=== PATIENT | male | born 1950 | race Caucasian/White ===

== ENCOUNTER 2017-06-03 02:56 | Day surgery (SDC) | payer MEDICARE, MEDICAID ==
[2017-06-01 10:29] VITALS: BP 128/70
[2017-06-01 11:13] LABS: BASOPHIL % 0.4 % (0.0-0.2); EOSINOPHIL # 0.4 10^3/uL (0.0-0.2); EOSINOPHIL % 5.3 % (0.0-5.0); LYMPHOCYTES # 1.9 10^3/uL (1.0-4.8); LYMPHOCYTES % 27.7 % (24.0-44.0); MEAN CELL HGB 30.6 pg (26-34); MEAN CELL HGB CONCENTRATION 33.6 g/dL (33-37); MEAN CORP VOLUME 91.2 fL (78-100); MEAN PLATELET VOLUME 9.7 fL (7.8-11.0); MONOCYTES # 0.7 10^3/uL (0.3-0.8); MONOCYTES % 10.1 % (5.0-12.0); NEUTROPHIL # 3.8 10^3/uL (1.8-7.7); NEUTROPHILS % 56.4 % (41.0-85.0); RED CELL DISTRIBUTION WIDTH 12.5 % (11.5-14.5); WHITE BLOOD CELL 6.8 10^3/uL (4.5-11.0)
[2017-06-01 11:34] LABS: CALCIUM 9.9 mg/dL (8.4-10.5); CARBON DIOXIDE 22.7 mmol/L (20.0-32)
--- NOTE | 2017-06-01 16:07 | PCM.EKG ---
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
[2017-06-03] VITALS (12 sets, daily range): BP systolic 109–145; BP diastolic 50–76
[~2017-06-03] VITALS: Ht 182.9 cm; Wt 121.1 kg
[~2017-06-03 02:56] MED LIST: AMLO1CAP15 PO; ASPI-667 PO; CINN500C2 PO; CIPR500T86 PO; DULA1.5P SQ; FAMO20TA5 PO; FAMO40TA4 PO; GARL10002 PO; INSU100C5 SQ; INSU100V8 SQ; LEVO100T5 PO; LEVO500T51 PO; LINA1TAB5 PO; MULT-709 PO; OLME1TAB23 PO; OLME40TA12 PO; OMEG500C PO; RANI150T4 PO; RANI150T8 PO; SOLI10TA2 PO; TAMS0.4C2 PO; TRAM50TA PO; VIT1TABL32 PO
[2017-06-03] MEDS ORDERED: NS 1000ML 1,000 ML ONE ×2 (05:26→10:42)
[2017-06-03] MEDS ORDERED: LASIX ONE (05:26)
[2017-06-03] MEDS ORDERED: SUBLIMAZE ONE (06:33)
[2017-06-03] MEDS ORDERED: DIPRIVAN IV ONE (06:33)
[2017-06-03] MEDS ORDERED: TORADOL ONE (06:33)
[2017-06-03] MEDS ORDERED: ZOFRAN ONE (06:33)
[2017-06-03] MEDS ORDERED: DECADRON ONE (06:33)
[2017-06-03] MEDS ORDERED: XYLOCAINE ONE (06:33)
[2017-06-03] MEDS: NS 1000ML 1,000 ML IV SCH ×4 (07:04→10:34)
[2017-06-03] MEDS ORDERED: QUELICIN ONE (08:34)
[2017-06-03] MEDS ORDERED: ZEMURON IV ONE (08:35)
[2017-06-03] MEDS ORDERED: LASIX IV ONE (09:00)
[2017-06-03] MEDS ORDERED: ACET-685 PO (10:12)
[2017-06-03] MEDS ORDERED: LASIX IV SCH (10:30)
[2017-06-03] MEDS ORDERED: NORCO 7.5MG PO PRN (10:30)
[2017-06-03] MEDS ORDERED: LACTATED RINGERS 1,000 ML IV SCH (10:30)
[2017-06-03] MEDS ORDERED: NEOSTIGMINE ONE (10:42)
[2017-06-03] MEDS ORDERED: MORPHINE SULFATE IV PRN (11:00)
[2017-06-03] MEDS ORDERED: TRANDATE IV PRN (11:00)
[2017-06-03] MEDS ORDERED: DILAUDID IV PRN (11:00)
[2017-06-03] MEDS ORDERED: SUBLIMAZE IV PRN (11:00)
--- NOTE | 2017-06-04 19:04 | OPH ---
DATE OF SURGERY: 06/03/2017 PREOPERATIVE DIAGNOSIS: Right renal calculus. FINAL DIAGNOSIS: Right renal calculus. PROCEDURES: Right ESWL. DESCRIPTION OF PROCEDURE: The patient was brought to the lithotripsy room, was put in supine position on the lithotripsy table. A right preop renal ultrasound was initially performed which revealed a stone in the mid pole of the right kidney measuring 8 mm in diameter. There was no evidence of hydronephrosis, no cysts or masses noted. After the patient was given general anesthesia and after localization of the stone with the use of an ultrasound and the C-arm fluoroscopy, a right ESWL was then performed using a Dornier Compact Delta II Lithotripter. A total of 2500 shockwaves were delivered to the stones in the right kidney under ultrasound guidance. After fragmentation of the stone as noted in the ultrasound and fluoroscopy, the procedure was terminated. The patient was then awakened, was transferred to the recovery room in stable condition. Myron Mcdermott MD DR: SALENA/josephine JOB# [id number]
== END 2017-06-03 11:35 | disposition home or self-care (01) | DRG 693 ==
LOC: SDC 02:56
PROVIDERS: ATTEND Urology
DX: N20.0 Calculus of kidney (principal); I10 Essential (primary) hypertension; E66.9 Obesity, unspecified; I63.9 Cerebral infarction, unspecified; E03.9 Hypothyroidism, unspecified; E11.9 Type 2 diabetes mellitus without complications; K21.9 Gastro-esophageal reflux disease without esophagitis; Z79.899 Other long term (current) drug therapy; Z98.890 Other specified postprocedural states; Z88.8 Allergy status to other drugs, medicaments and biological substances; Z79.4 Long term (current) use of insulin
CPT/HCPCS: 36415; 50590; 80048; 82948 ×2; 85025; 85610; 93005; J0330; J1100; J1885; J2405; J3010; J3490 ×3; J7030 ×2; J1940; J2710

== ENCOUNTER 2017-06-17 01:40 | Day surgery (SDC) | payer MEDICARE, MEDICAID ==
[2017-06-17] VITALS (10 sets, daily range): BP systolic 130–167; BP diastolic 56–80
[~2017-06-17] VITALS: Ht 182.9 cm; Wt 121.1 kg
[~2017-06-17 01:40] MED LIST changes: +ACET-685 PO
[2017-06-17] MEDS ORDERED: NS 1000ML 1,000 ML ONE (05:11)
[2017-06-17] MEDS ORDERED: LASIX ONE (05:11)
[2017-06-17] MEDS ORDERED: NS 1000ML 1,000 ML IV SCH (06:00)
[2017-06-17] MEDS ORDERED: DECADRON ONE (06:49)
[2017-06-17] MEDS ORDERED: LIDOCAINE 2% VIAL ONE (06:49)
[2017-06-17] MEDS ORDERED: ZEMURON IV ONE (06:49)
[2017-06-17] MEDS ORDERED: NEOSTIGMINE ONE (06:50)
[2017-06-17] MEDS ORDERED: ZOFRAN ONE (06:50)
[2017-06-17] MEDS ORDERED: SUBLIMAZE ONE (06:50)
[2017-06-17] MEDS ORDERED: QUELICIN ONE (06:50)
[2017-06-17] MEDS ORDERED: DIPRIVAN IV ONE (06:50)
[2017-06-17] MEDS ORDERED: LASIX IV ONE (08:00)
[2017-06-17] MEDS ORDERED: LACTATED RINGERS 1,000 ML IV SCH (09:30)
[2017-06-17] MEDS ORDERED: SUBLIMAZE IV PRN (09:30)
[2017-06-17] MEDS ORDERED: NORCO 7.5MG PO PRN (09:30)
[2017-06-17] MEDS ORDERED: LASIX IV SCH (09:30)
[2017-06-17] MEDS ORDERED: DILAUDID IV PRN (09:30)
[2017-06-17] MEDS ORDERED: PHENERGAN IV PRN (09:30)
--- NOTE | 2017-06-17 09:41 | PCM.EKG ---
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
--- NOTE | 2017-06-17 09:46 | OPH ---
DATE OF SURGERY: 06/17/2017 PREOPERATIVE DIAGNOSIS: Left renal calculi. FINAL DIAGNOSIS: Left renal calculi. PROCEDURE: Left ESWL. DESCRIPTION OF PROCEDURE: The patient was brought to the lithotripsy room, was put in supine position on the lithotripsy table. A left preop renal ultrasound was initially performed which showed the stone in the lower pole of the left kidney measuring 8.4 mm in diameter and another one in the left renal pelvis measuring 1.1 cm in diameter. There was no evidence of obstruction or hydronephrosis noted. After the patient was given endotracheal general anesthesia and after localization of the stone with the use of the fluoroscopy and ultrasound, a left ESWL was then performed using Dornier Compact Delta II Lithotripter. A total of 2500 shockwaves were delivered to the stones in different locations in the left kidney under ultrasound guidance. After fragmentation of the stone as noted in the ultrasound the procedure was terminated. The patient was awakened, was transferred to the recovery room in stable condition. Myron Mcdermott MD DR: SALENA/josephine JOB# [id number]
== END 2017-06-17 10:30 | disposition home or self-care (01) | DRG 693 ==
LOC: SURG 01:40 → SDC 10:30
PROVIDERS: ATTEND Urology
DX: N20.0 Calculus of kidney (principal); E11.9 Type 2 diabetes mellitus without complications; K21.9 Gastro-esophageal reflux disease without esophagitis; E66.9 Obesity, unspecified; I10 Essential (primary) hypertension; I63.9 Cerebral infarction, unspecified; Z98.890 Other specified postprocedural states; Z88.1 Allergy status to other antibiotic agents; Z88.8 Allergy status to other drugs, medicaments and biological substances; Z79.899 Other long term (current) drug therapy
CPT/HCPCS: 50590; 82948 ×2; 93005; J0330; J1100; J2001; J2405; J3010; J3490 ×2; J7030; J1940; J2710

== ENCOUNTER 2018-10-26 08:00 | Inpatient (IN) | payer MEDICARE, MEDICAID ==
[2018-10-24 10:31] LABS: BASOPHIL # 0.1 10^3/uL (0.0-0.1); BASOPHIL % 0.6 % (0.0-0.2); EOSINOPHIL # 0.4 10^3/uL (0.0-0.2); EOSINOPHIL % 4.1 % (0.0-5.0); HEMOGLOBIN 14.3 g/dL (13.9-16.3); LYMPHOCYTES # 2.2 10^3/uL (1.0-4.8); MEAN CELL HGB 30.1 pg (26-34); MEAN CELL HGB CONCENTRATION 34.2 g/dL (33-37); MONOCYTES # 0.9 10^3/uL (0.3-0.8); MONOCYTES % 9.6 % (5.0-12.0); NEUTROPHIL # 5.5 10^3/uL (1.8-7.7); NEUTROPHILS % 61.4 % (41.0-85.0); RED CELL DISTRIBUTION WIDTH 14.8 % (11.5-14.5)
[2018-10-24 10:40] VITALS: BP 144/73
[2018-10-24 10:44] LABS: CARBON DIOXIDE 29.2 mmol/L (20.0-32)
--- NOTE | 2018-10-24 13:48 | PCM.EKG ---
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
[~2018-10-26] VITALS: Ht 185.4 cm; Wt 112.2 kg
[2018-10-26] VITALS (9 sets, daily range): BP systolic 105–145; BP diastolic 57–80
[2018-10-26] MEDS: NS 1000ML 1,000 ML IV SCH ×3 (07:14→18:15)
[~2018-10-26 08:00] MED LIST changes: +AMINOACETIC ACID IR ONE; +DECADRON ONE; +DILAUDID ONE; +DIPRIVAN IV ONE; +INSU100I33 SQ; +LEVAQUIN 100 ML IV ONE; +LIDOCAINE 2% VIAL ONE; +LINA1TAB9 PO; +MARCAINE SPINAL AMPUL IJ ONE; +RANI150T23 PO; -RANI150T8 PO; +SODIUM CHLORIDE IR ONE; +SUBLIMAZE ONE; +ZOFRAN ONE
[2018-10-26] MEDS ORDERED: SUBLIMAZE ONE (08:30)
[2018-10-26] MEDS ORDERED: AMINOACETIC ACID IR ONE (08:31)
[2018-10-26] MEDS ORDERED: NORCO 7.5MG PO PRN ×2 (09:30)
[2018-10-26] MEDS ORDERED: ZOFRAN IV PRN (09:30)
[2018-10-26] MEDS ORDERED: DEMEROL IV PRN (09:30)
[2018-10-26] MEDS ORDERED: DILAUDID IV PRN (09:30)
[2018-10-26] MEDS ORDERED: BENADRYL IV PRN (09:30)
[2018-10-26] MEDS ORDERED: PHENERGAN IV PRN ×4 (09:30)
[2018-10-26] MEDS ORDERED: VENTOLIN IH PRN (09:30)
[2018-10-26] MEDS ORDERED: NS 100ML 100 ML IV ONE (09:35)
[2018-10-26] MEDS ORDERED: EPHEDRINE SULFATE ONE (09:35)
[2018-10-26] MEDS ORDERED: NS 1000ML 1,000 ML ONE ×2 (09:35→09:36)
--- NOTE | 2018-10-26 09:48 | OPH ---
DATE OF SURGERY: 10/26/2018 PREOPERATIVE DIAGNOSIS: Obstructive prostatic hyperplasia. FINAL DIAGNOSIS: Obstructive prostatic hyperplasia. PROCEDURES: TUR of the prostate. DESCRIPTION OF PROCEDURE: The patient was brought to the cystoscopy room and put in supine position on the cystoscopy table. A spinal anesthesia was attempted, but unsuccessful, so the patient was then put in the supine position on the cystoscopy table. The patient was given an LMA general anesthesia. After that, the patient was placed in the lithotomy position and the genitalia was then prepped and draped aseptically in the usual manner. First, the urethra was dilated with curved sounds up to 28-[place]izen [place] and then a 26-Citizen [place] resectoscope sheath was then inserted per urethra up to the bladder. With the use of Thoughtly resectoscope and with a 30-degree angle lens, the posterior urethra was visualized. There is bilateral lobe prostatic hyperplasia, which was obstructed. The bladder was also inspected. No tumor, no calculi, no ulceration seen. There was some trabeculation noted. TUR of the prostate was started at the bladder neck between 5 and 7 and this was carried proximal to the verumontanum. The lateral lobes resected next followed by the roof. After adequate dissection of the prostatic hyperplasia up to the prostatic capsule and after adequate hemostasis, all tissue tips were then evacuated from the bladder. The bladder was then irrigated. Return flow was clear. The instrument was removed and a Arellano catheter was inserted. The patient was then awakened and was transferred to the recovery room in stable condition. Myron Mcdermott MD DR: SALENA/josephine JOB# [id number]
[2018-10-26] MEDS ORDERED: WATER ONE (09:57)
--- NOTE | 2018-10-26 10:25 | NUR ---
arrival patient arrived from the or. TURP [address] way infusing and functioning properly. attached to special vitals and set to q 15 minutes. patient oriented to room and call light.
--- NOTE | 2018-10-26 11:26 | PRM.CONS ---
Consultation Reason for Consult: Reason for Consultation: Medical management of Comorbidities History of Present Illness History of Patient Comments Patient is 68 M PMH of Recurrent kidney stones, DM, HTN, Hypothyroidism who presents s/p TURP with Urology. I was consulted for medical management of comorbidities. Patient is comfortable @ bedside during my evaluation. His pain is controlled. No complications of procedures. I reviewed the labs. Patient has fontenot in place. Clear urine output in fontenot. Discussed case with Dr. Mcdermott. Patient medications reconciled. Past Medical History 1. DM 2. HTN 3. Hypothyroidism 4. Recurrent Nephrolithiasis Past Surgical History 1. Lithotripsy (multiple) 2. TURP 3. Tonsillectomy 4. L Hip Social History: Lives @ home alone. No tobacco, no drugs, no alcohol. Family History: noncontributory Review of Systems Constitutional: No: Fever, Chills Eyes: No: Conjunctivae inflammation, Eyelid inflammation ENT: No: Nose discharge, Nose congestion Respiratory: No: Cough, Shortness of breath, SOB with excertion, Wheezing Cardiovascular: No: Chest Pain, Palpitations, Edema Gastrointestinal: No: Nausea, Vomiting, Abdominal Pain Genitourinary: Hematuria; No Retention Musculoskeletal: No: neck pain, back pain Skin: No: Rash, Lesions, Jaundice, Bruising Neurological: No: Weakness, Numbness, Incoordination, Change in speech, Confusion, Seizures Allergies: Coded Allergies: carvedilol (Verified Allergy, Severe, WEAKNESS,DIZZINESS,GOOFY, 06/01/17) Uncoded Allergies: HCTZ (Allergy, Mild, 06/17/17) Scheduled Amlodipine Besylate/Benazepril (Amlodipine-Benazepril 10-40 Mg), 1 CAP PO DAILY, (Reported) Cinnamon Bark (Cinnamon), 1,000 MG PO HS, (Reported) Garlic (Garlic), 1,000 MG PO HS, (Reported) Insulin Aspart (Novolog), 16 UNIT SQ BID, (Reported) Insulin Glargine,Hum.rec.anlog (Basaglar Kwikpen U-100), 75 UNITS SQ HS, (Reported) Levothyroxine Sodium (Levothyroxine Sodium), 100 MCG PO DAILY, (Reported) Linagliptin/Metformin HCl (Jentadueto Xr 5 mg-1,000 mg Tb), 1 EACH PO DAILY24, (Reported) Multivit-Min/FA/Lycopen/Lutein (Men 50 Plus Multivitamin Tab), 1 EACH PO DAILY, (Reported) [place]-3 Fatty Acids (Fish Oil), 1,000 MG PO HS, (Reported) Ranitidine Hcl (Zantac), 1 TAB PO BID, (Reported) Solifenacin Succinate (Vesicare), 1 TAB PO DAILY, (Reported) Tamsulosin Hcl (Tamsulosin Hcl), 0.4 MG PO DAILY, (Reported) Tramadol Hcl (Tramadol Hcl), 2 TAB PO BID, (Reported) Discontinued Medications Acetaminophen With Codeine (Tylenol With Codeine #3 Tablet), 1 EACH PO DAILY24 Discontinued Reason: Discontinue Insulin Glargine,Hum.rec.anlog (Lantus), 70 UNIT SQ HS, (Reported) Discontinued Reason: No Longer Taking Linagliptin/Metformin Hcl (Jentadueto 2.5 Mg-1000 Mg Tab), 1 EACH PO BID, (Reported) Discontinued Reason: No Longer Taking Vit A,C & E/Lutein/Minerals (Ocuvite Tablet), 1 EACH PO DAILY, (Reported) Discontinued Reason: No Longer Taking VTE VTE Risk Total Score: 4 VTE Risk Score VTE Risk: Score 0-1 = Low Risk (Aggressive mobilization; early ambulation; no VTE prophylaxis required) Score 2: Moderate Risk (Intermittent/Pneumatic Compression Device OR Lovenox/Heparin/Coumadin) Score 3-4: High Risk (Intermittent/Pneumatic Compression Device AND Lovenox/Heparin/Coumadin) Score > or =5: Highest Risk (Intermittent/Pneumatic Compression Device AND Lovenox/Heparin/Coumadin) Assessment/Plan Assessment/Plan Assessment/Plan Patient is 68 M PMH of Recurrent kidney stones, DM, HTN, Hypothyroidism who presents s/p TURP with Urology. Patient History: Cerebrovascular disorder 32 MOTHER, , Age:51 Diabetes mellitus G8 BROTHER FH: heart disease G8 BROTHER FHx: seizures 19 CHILD Hypertension G8 BROTHER Unknown G8 SISTER Plan 1. BPH with obstruction: s/p TURP with Urology. Cont pain control, fontenot. Further recs per Urology. Cont Tamsulosin, Diprovan 2. DM: will continue Basal Insulin with SSI to cover. Hold oral hypoglycemics 3. HTN: holding home medications currently. 4. Hypothyroidism: cont synthroid 5. PPx: Nato, YVETTE Salinas MD Oct 26, 2018 11:26
[2018-10-26] MEDS ORDERED: DEXTROSE 50%-WATER SYRINGE IV PRN (11:30)
[2018-10-26] MEDS: HUMALOG SQ SCH ×3 (12:20→20:31)
[2018-10-26] MEDS: DITROPAN PO SCH ×2 (14:49→20:32)
[2018-10-26] MEDS: LANTUS SQ SCH (20:31)
[2018-10-26] MEDS: PEPCID PO SCH (20:32)
[2018-10-26] MEDS: NORCO 7.5MG PO PRN (21:57)
[2018-10-26] MEDS ORDERED: NS 3000ML IRR IR ONE (22:15)
[2018-10-27] MEDS: NS 1000ML 1,000 ML IV SCH (03:20)
[2018-10-27] MEDS: NORCO 7.5MG PO PRN ×2 (03:26→09:02)
[2018-10-27 04:07] VITALS: BP 133/79
[2018-10-27 05:00] LABS: HEMOGLOBIN 13.4 g/dL (13.9-16.3); MEAN CELL HGB 30.4 pg (26-34); MEAN CELL HGB CONCENTRATION 34.4 g/dL (33-37); MEAN CORP VOLUME 88.2 fL (78-100); MEAN PLATELET VOLUME 9.4 fL (7.8-11.0); RED CELL DISTRIBUTION WIDTH 14.6 % (11.5-14.5); WHITE BLOOD CELL 16.9 10^3/uL (4.5-11.0)
[2018-10-27 05:10] LABS: CARBON DIOXIDE 24.4 mmol/L (20.0-32)
[2018-10-27] MEDS ORDERED: NS 3000ML IRR IR ONE (06:15)
[2018-10-27] MEDS: HUMALOG SQ SCH ×4 (07:30→21:31)
[2018-10-27 08:05] VITALS: BP 143/76
--- NOTE | 2018-10-27 08:08 | NUR ---
CBI stopped cbi irrigation and placed catheter plug. urine clear and no sediment.
--- NOTE | 2018-10-27 08:51 | PRM.PN ---
Subjective Subjective Date: Oct 27, 2018 Time: 08:45 Subjective Patient denies complaints. Labs reviewed. Pain controlled. No acute issues. Patient History: Cerebrovascular disorder 32 MOTHER, , Age:51 Diabetes mellitus G8 BROTHER FH: heart disease G8 BROTHER FHx: seizures 19 CHILD Hypertension G8 BROTHER Unknown G8 SISTER VTE VTE Risk Total Score: 4 VTE Risk Score VTE Risk: Score 0-1 = Low Risk (Aggressive mobilization; early ambulation; no VTE prophylaxis required) Score 2: Moderate Risk (Intermittent/Pneumatic Compression Device OR Lovenox/Heparin/Coumadin) Score 3-4: High Risk (Intermittent/Pneumatic Compression Device AND Lovenox/Heparin/Coumadin) Score > or =5: Highest Risk (Intermittent/Pneumatic Compression Device AND Lovenox/Heparin/Coumadin) Review of Systems Neurological: Incoordination Allergies: Coded Allergies: carvedilol (Verified Allergy, Severe, WEAKNESS,DIZZINESS,GOOFY, 06/01/17) Uncoded Allergies: HCTZ (Allergy, Mild, 06/17/17) Scheduled Amlodipine Besylate/Benazepril (Amlodipine-Benazepril 10-40 Mg), 1 CAP PO DAILY, (Reported) Cinnamon Bark (Cinnamon), 1,000 MG PO HS, (Reported) Garlic (Garlic), 1,000 MG PO HS, (Reported) Insulin Aspart (Novolog), 16 UNIT SQ BID, (Reported) Insulin Glargine,Hum.rec.anlog (Basaglar Kwikpen U-100), 75 UNITS SQ HS, (Reported) Levothyroxine Sodium (Levothyroxine Sodium), 100 MCG PO DAILY, (Reported) Linagliptin/Metformin HCl (Jentadueto Xr 5 mg-1,000 mg Tb), 1 EACH PO DAILY24, (Reported) Multivit-Min/FA/Lycopen/Lutein (Men 50 Plus Multivitamin Tab), 1 EACH PO DAILY, (Reported) [place]-3 Fatty Acids (Fish Oil), 1,000 MG PO HS, (Reported) Ranitidine Hcl (Zantac), 1 TAB PO BID, (Reported) Solifenacin Succinate (Vesicare), 1 TAB PO DAILY, (Reported) Tamsulosin Hcl (Tamsulosin Hcl), 0.4 MG PO DAILY, (Reported) Tramadol Hcl (Tramadol Hcl), 2 TAB PO BID, (Reported) Discontinued Medications Acetaminophen With Codeine (Tylenol With Codeine #3 Tablet), 1 EACH PO DAILY24 Discontinued Reason: Discontinue Insulin Glargine,Hum.rec.anlog (Lantus), 70 UNIT SQ HS, (Reported) Discontinued Reason: No Longer Taking Linagliptin/Metformin Hcl (Jentadueto 2.5 Mg-1000 Mg Tab), 1 EACH PO BID, (Reported) Discontinued Reason: No Longer Taking Vit A,C & E/Lutein/Minerals (Ocuvite Tablet), 1 EACH PO DAILY, (Reported) Discontinued Reason: No Longer Taking Objective Vitals and I/O Vital Sign - Last 24 Hours 10/26/18 10/26/18 10/26/18 10/26/18 09:15 09:15 09:25 09:35 Temp 99.0 98.2 98.1 99.0 98.2 98.1 Pulse 89 88 92 Resp 18 18 18 B/P (MAP) 105/65 (78) 124/61 (82) 119/68 (85) Pulse Ox 94 95 93 O2 Delivery Non-Rebreather Non-Rebreather Nasal Canula O2 Flow Rate 10 10 10 3 10/26/18 10/26/18 10/26/18 10/26/18 09:45 10:05 12:08 14:36 Temp 98.0 97.9 98.0 97.9 Pulse 86 88 Resp 18 18 18 B/P (MAP) 123/57 (79) 118/65 (82) Pulse Ox 93 96 96 O2 Delivery Nasal Canula Nasal Canula Nasal Cannula O2 Flow Rate 3 3 1.00 10/26/18 10/26/18 10/26/18 10/26/18 14:38 16:17 19:43 20:10 Temp 97.6 97.6 97.6 97.6 Pulse 103 103 99 99 Resp 18 18 18 18 B/P (MAP) 130/79 (96) 145/73 (97) Pulse Ox 96 93 96 96 O2 Delivery Nasal Cannula Room Air Nasal Canula Nasal Cannula O2 Flow Rate 2.00 2.00 2.00 FiO2 28 10/26/18 10/26/18 10/27/18 10/27/18 22:52 23:22 04:07 07:19 Temp 97.5 97.5 97.5 97.5 Pulse 96 90 Resp 18 18 B/P (MAP) 132/80 (97) 133/79 (97) Pulse Ox 94 94 O2 Delivery Nasal Cannula Nasal Canula Room Air Room Air O2 Flow Rate 2.00 2.00 10/27/18 08:05 Temp 97.6 97.6 Pulse 92 Resp 18 B/P (MAP) 143/76 (98) Pulse Ox 92 O2 Delivery Room Air Intake and Output 10/26/18 10/26/18 10/27/18 15:00 23:00 07:00 Intake Total 10434 ml 3250 ml 8000 ml Output Total 2225 ml 2800 ml 1160 ml Balance 84307 ml 450 ml 6840 ml General: Alert, Oriented X3, Cooperative, No acute distress HEENT: Atraumatic, PERRLA, EOMI, Mucous membr. moist/pink Neck: Supple, No JVD Lungs: Clear to auscultation, Normal air movement Heart: Regular rate, Normal S1, Normal S2, No murmurs Abdomen: Normal bowel sounds, Soft, No tenderness Extremities: No edema, Normal pulses, No tenderness/swelling Skin: No rashes, No breakdown, No significant lesion Neuro: Normal gait, Normal speech, Strength at 5/5 X4 ext, Normal tone, Sensation intact, Cranial nerves 3-12 NL Psych/Mental Status: Mental status NL, Mood NL All Results(Lab/Rad) Laboratory Tests Test 10/27/18 04:40 White Blood Count 16.9 10^3/uL Red Blood Count 4.41 10^6/uL Hemoglobin 13.4 g/dL Hematocrit 38.9 % Mean Corpuscular Volume 88.2 fL Mean Corpuscular Hemoglobin 30.4 pg Mean Corpuscular Hemoglobin Concent 34.4 g/dL Red Cell Distribution Width 14.6 % Platelet Count 169 10^3/uL Mean Platelet Volume 9.4 fL Sodium Level 138 mmol/L Potassium Level 5.1 mmol/L Chloride Level 105.0 mmol/L Carbon Dioxide Level 24.4 mmol/L Anion Gap 13.7 Current Medications Medications (Trade) Dose Ordered Sig/Nicole Route PRN Reason Start Time Stop Time Status Last Admin Dose Admin Sodium Chloride 1,000 ml @ 100 mls/hr Q10H IV 10/26/18 07:00 10/27/18 07:53 DC 10/27/18 03:20 Levofloxacin/ Dextrose 100 ml @ ud STK-MED ONCE IV 10/26/18 06:03 10/26/18 06:05 DC Dexamethasone Sodium Phosphate (Decadron) 4 mg STK-MED ONCE .ROUTE 10/26/18 06:47 10/26/18 06:49 DC Lidocaine HCl (Lidocaine 2% Vial) 500 mg STK-MED ONCE .ROUTE 10/26/18 06:47 10/26/18 06:49 DC Ondansetron HCl (Zofran) 4 mg STK-MED ONCE .ROUTE 10/26/18 06:47 10/26/18 06:49 DC Hydromorphone HCl (Dilaudid) 2 mg STK-MED ONCE .ROUTE 10/26/18 06:47 10/26/18 06:49 DC Fentanyl Citrate (Sublimaze) 100 mcg STK-MED ONCE .ROUTE 10/26/18 06:48 10/26/18 06:50 DC Propofol (Diprivan) 200 mg STK-MED ONCE IV 10/26/18 06:48 10/26/18 06:50 DC Bupivacaine HCl/ Dextrose (Marcaine Spinal Ampul) 2 ml STK-MED ONCE IJ 10/26/18 06:48 10/26/18 06:50 DC Sodium Chloride (Sodium Chloride) 1,000 ml STK-MED ONCE IR 10/26/18 07:19 10/26/18 07:21 DC Glycine (Aminoacetic Acid) 3,000 ml STK-MED ONCE IR 10/26/18 07:20 10/26/18 07:22 DC Fentanyl Citrate (Sublimaze) 100 mcg STK-MED ONCE .ROUTE 10/26/18 08:30 10/26/18 08:32 DC Glycine (Aminoacetic Acid) 3,000 ml STK-MED ONCE IR 10/26/18 08:31 10/26/18 08:33 DC Hydromorphone HCl (Dilaudid) 0.2 mg Q5MIN PRN IV PAIN 1 - 3 10/26/18 09:30 10/27/18 01:39 DC Ondansetron HCl (Zofran) 4 mg PRN PRN IV nv 10/26/18 09:30 10/27/18 01:39 DC Promethazine HCl (Phenergan) 6.25 mg PRN PRN IV NAUSEA / VOMITING 10/26/18 09:30 10/27/18 01:39 DC Diphenhydramine HCl (Benadryl) 25 mg Q5MIN PRN IV NAUSEA / VOMITING 10/26/18 09:30 10/27/18 01:39 DC Albuterol Sulfate (Ventolin) 2.5 mg OT PRN IH WHEEZING 10/26/18 09:30 10/27/18 01:39 DC Acetaminophen/ Hydrocodone Bitart ([place] 7.5mg) 1 each Q4H PRN PO PAIN 10/26/18 09:30 11/25/18 09:29 10/27/18 03:26 Promethazine HCl (Phenergan) 12.5 mg Q4H PRN IV NAUSEA / VOMITING 10/26/18 09:30 11/25/18 09:29 Acetaminophen/ Hydrocodone Bitart ([place] 7.5mg) 1 each Q4H PRN PO PAIN 10/26/18 09:30 10/26/18 11:24 DC Promethazine HCl (Phenergan) 12.5 mg Q4H PRN IV NAUSEA / VOMITING 10/26/18 09:30 10/26/18 11:34 DC Acetaminophen/ Hydrocodone Bitart ([place] 7.5mg) 1 each Q4H PRN PO PAIN 10/26/18 09:30 10/26/18 11:24 DC Promethazine HCl (Phenergan) 12.5 mg Q4H PRN IV NAUSEA / VOMITING 10/26/18 09:30 10/26/18 11:34 DC Meperidine HCl (Demerol) 25 mg Q4 PRN IV PAIN 7 - 10 10/26/18 09:30 11/25/18 09:29 Sodium Chloride 100 ml @ ud STK-MED ONCE IV 10/26/18 09:35 10/26/18 09:37 DC Sodium Chloride 1,000 ml @ ud STK-MED ONCE .ROUTE 10/26/18 09:35 10/26/18 09:37 DC Ephedrine Sulfate (Ephedrine Sulfate) 50 mg STK-MED ONCE .ROUTE 10/26/18 09:35 10/26/18 09:37 DC Sodium Chloride 1,000 ml @ ud STK-MED ONCE .ROUTE 10/26/18 09:36 10/26/18 09:38 DC Sterile Water (Water) 1,000 ml STK-MED ONCE .ROUTE 10/26/18 09:57 10/26/18 09:59 DC Levothyroxine Sodium (Synthroid) 100 mcg ACB PO 10/27/18 09:00 11/26/18 08:59 Tamsulosin HCl (Flomax) 0.4 mg DAILY PO 10/27/18 09:00 11/26/18 08:59 Insulin Glargine (Lantus) 75 unit HS SQ 10/26/18 21:00 11/25/18 20:59 10/26/18 20:31 Oxybutynin Chloride (Ditropan) 5 mg TID PO 10/26/18 15:00 11/25/18 14:59 10/26/18 20:32 Insulin Human Lispro (Humalog) Give when food is in front... ACHS SQ 10/26/18 11:30 11/25/18 11:29 10/26/18 20:31 Dextrose (Dextrose 50%-Water Syringe) 25 ml STAT PRN IV HYPOGLYCEMIA 10/26/18 11:30 11/25/18 11:29 Famotidine (Pepcid) 20 mg BID PO 10/26/18 21:00 11/25/18 20:59 10/26/18 20:32 Sodium Chloride (NS 3000ml Irr) 3,000 ml STK-MED ONCE IR 10/26/18 22:15 10/26/18 22:17 DC Sodium Chloride (NS 3000ml Irr) 3,000 ml STK-MED ONCE IR 10/27/18 06:15 10/27/18 06:18 DC Course Sepsis Screening Results: Posi: NEGATIVE Sepsis Qualifier/Stage: NO DEFINITE RISK Vitals & review Data Vital Sign - Last 24 Hours 10/26/18 10/26/18 10/26/18 10/26/18 09:15 09:15 09:25 09:35 Temp 99.0 98.2 98.1 99.0 98.2 98.1 Pulse 89 88 92 Resp 18 18 18 B/P (MAP) 105/65 (78) 124/61 (82) 119/68 (85) Pulse Ox 94 95 93 O2 Delivery Non-Rebreather Non-Rebreather Nasal Canula O2 Flow Rate 10 10 10 3 10/26/18 10/26/18 10/26/18 10/26/18 09:45 10:05 12:08 14:36 Temp 98.0 97.9 98.0 97.9 Pulse 86 88 Resp 18 18 18 B/P (MAP) 123/57 (79) 118/65 (82) Pulse Ox 93 96 96 O2 Delivery Nasal Canula Nasal Canula Nasal Cannula O2 Flow Rate 3 3 1.00 10/26/18 10/26/18 10/26/18 10/26/18 14:38 16:17 19:43 20:10 Temp 97.6 97.6 97.6 97.6 Pulse 103 103 99 99 Resp 18 18 18 18 B/P (MAP) 130/79 (96) 145/73 (97) Pulse Ox 96 93 96 96 O2 Delivery Nasal Cannula Room Air Nasal Canula Nasal Cannula O2 Flow Rate 2.00 2.00 2.00 FiO2 28 10/26/18 10/26/18 10/27/18 10/27/18 22:52 23:22 04:07 07:19 Temp 97.5 97.5 97.5 97.5 Pulse 96 90 Resp 18 18 B/P (MAP) 132/80 (97) 133/79 (97) Pulse Ox 94 94 O2 Delivery Nasal Cannula Nasal Canula Room Air Room Air O2 Flow Rate 2.00 2.00 10/27/18 08:05 Temp 97.6 97.6 Pulse 92 Resp 18 B/P (MAP) 143/76 (98) Pulse Ox 92 O2 Delivery Room Air Intake and Output 10/26/18 10/26/18 10/27/18 15:00 23:00 07:00 Intake Total 64960 ml 3250 ml 8000 ml Output Total 2225 ml 2800 ml 1160 ml Balance 32927 ml 450 ml 6840 ml Laboratory Tests Test 10/27/18 04:40 White Blood Count 16.9 10^3/uL Red Blood Count 4.41 10^6/uL Hemoglobin 13.4 g/dL Hematocrit 38.9 % Mean Corpuscular Volume 88.2 fL Mean Corpuscular Hemoglobin 30.4 pg Mean Corpuscular Hemoglobin Concent 34.4 g/dL Red Cell Distribution Width 14.6 % Platelet Count 169 10^3/uL Mean Platelet Volume 9.4 fL Sodium Level 138 mmol/L Potassium Level 5.1 mmol/L Chloride Level 105.0 mmol/L Carbon Dioxide Level 24.4 mmol/L Anion Gap 13.7 Current Medications Medications (Trade) Dose Ordered Sig/Nicole PRN Reason Start Time Stop Time Status Last Admin Acetaminophen/ Hydrocodone Bitart ([place] 7.5mg) 1 each Q4H PRN PAIN 10/26/18 09:30 11/25/18 09:29 10/27/18 03:26 Dextrose (Dextrose 50%-Water Syringe) 25 ml STAT PRN HYPOGLYCEMIA 10/26/18 11:30 11/25/18 11:29 Famotidine (Pepcid) 20 mg BID 10/26/18 21:00 11/25/18 20:59 10/26/18 20:32 Insulin Glargine (Lantus) 75 unit HS 10/26/18 21:00 11/25/18 20:59 10/26/18 20:31 Insulin Human Lispro (Humalog) Give when food is in front... ACHS 10/26/18 11:30 11/25/18 11:29 10/26/18 20:31 Levothyroxine Sodium (Synthroid) 100 mcg ACB 10/27/18 09:00 11/26/18 08:59 Meperidine HCl (Demerol) 25 mg Q4 PRN PAIN 7 - 10 10/26/18 09:30 11/25/18 09:29 Oxybutynin Chloride (Ditropan) 5 mg TID 10/26/18 15:00 11/25/18 14:59 10/26/18 20:32 Promethazine HCl (Phenergan) 12.5 mg Q4H PRN NAUSEA / VOMITING 10/26/18 09:30 11/25/18 09:29 Tamsulosin HCl (Flomax) 0.4 mg DAILY 10/27/18 09:00 11/26/18 08:59 Sepsis Infection Criteria Pres: None LEVEL 1 SEPSIS INFECTION CRITE: ABX Therapy, Recent Invasive Procedure O2 Sat by Pulse Oximetry: 92 Oxygen Flow Rate: 2.00 Assessment/Plan Assessment/Plan Assessment/Plan 1. BPH with obstruction: s/p TURP with Urology POD #1. Cont pain control, fontenot. Further recs per Urology. Cont Tamsulosin, Diprovan 2. DM: sugars controlled without oral hypoglycemics. Cont basal, SSI to cover. 3. HTN: cont Norvasc, holding UGO. 4. Hypothyroidism: cont synthroid 5. PPx: Nato, YVETET Salinas MD Oct 27, 2018 08:51
--- NOTE | 2018-10-27 08:54 | PNH ---
DATE: 10/27/2018 Postop day #1, the patient is afebrile. Urine is clear. Vital signs are stable. We will discontinue all IV and CBI and we will get him out of bed. Myron Mcdermott MD DR: SALENA/josephine JOB# [id number]
[2018-10-27] MEDS: FLOMAX PO SCH (09:02)
[2018-10-27] MEDS: DITROPAN PO SCH ×3 (09:02→21:29)
[2018-10-27] MEDS: PEPCID PO SCH ×2 (09:03→21:29)
[2018-10-27] MEDS: NORVASC PO SCH (09:03)
[2018-10-27] MEDS: SYNTHROID PO SCH (09:04)
--- NOTE | 2018-10-27 10:56 | NUR ---
bath assisted from bath back to bed and assisted to get dressed. given coffee for patient per patient request.
[2018-10-27] MEDS ORDERED: LEVAQUIN 100 ML IV SCH (11:00)
[2018-10-27 12:16] VITALS: BP 129/77
[2018-10-27 17:37] VITALS: BP 134/75
[2018-10-27 20:00] VITALS: BP 137/80
[2018-10-27] MEDS: LANTUS SQ SCH (21:33)
[2018-10-28 00:19] VITALS: BP 144/88
[2018-10-28 05:03] VITALS: BP 123/85
[2018-10-28] MEDS: SYNTHROID PO SCH ×2 (05:58→06:13)
[2018-10-28 06:30] LABS: CALCIUM 9.6 mg/dL (8.4-10.5); CARBON DIOXIDE 23.8 mmol/L (20.0-32)
--- NOTE | 2018-10-28 06:49 | NUR ---
REPORT RECEIVED REPORT FROM YOLANDE GUPTA. ASSUMED CARE FOR PATIENT AT THIS TIME.
[2018-10-28] MEDS: HUMALOG SQ SCH (07:30)
[2018-10-28 08:06] LABS: BASOPHIL % 0.3 % (0.0-0.2); EOSINOPHIL # 0.5 10^3/uL (0.0-0.2); EOSINOPHIL % 3.8 % (0.0-5.0); HEMOGLOBIN 14.4 g/dL (13.9-16.3); LYMPHOCYTES # 3.1 10^3/uL (1.0-4.8); LYMPHOCYTES % 22.2 % (24.0-44.0); MEAN CELL HGB CONCENTRATION 34.4 g/dL (33-37); MEAN CORP VOLUME 87.1 fL (78-100); MONOCYTES # 1.5 10^3/uL (0.3-0.8); MONOCYTES % 10.9 % (5.0-12.0); NEUTROPHIL # 8.6 10^3/uL (1.8-7.7); NEUTROPHILS % 62.4 % (41.0-85.0); RED CELL DISTRIBUTION WIDTH 14.9 % (11.5-14.5); WHITE BLOOD CELL 13.8 10^3/uL (4.5-11.0)
[2018-10-28] MEDS ORDERED: CIPR500T86 PO (08:24)
[2018-10-28] MEDS: DITROPAN PO SCH (08:41)
[2018-10-28] MEDS: PEPCID PO SCH (08:41)
[2018-10-28] MEDS: NORVASC PO SCH (08:41)
[2018-10-28] MEDS: FLOMAX PO SCH (08:41)
--- NOTE | 2018-10-28 08:46 | PNH ---
DATE: 10/28/2018 This is postop day #2. SUBJECTIVE: The patient is afebrile. Urine is clear. Arellano catheter removed. The patient is doing well. The CBC today, the white count is down from 16.9-13.8. He will get another IV Levaquin this morning and the Arellano catheter was removed and if he is voiding well by this afternoon, the patient will be discharged. Given Cipro antibiotic 500 mg to take 1 tablet b.i.d. for the next 10 days. I will follow the patient in my office next week. Myron Mcdermott MD DR: SALENA/josephine JOB# [id number]
[2018-10-28 08:48] VITALS: BP 148/92
--- NOTE | 2018-10-28 09:30 | NUR ---
PATIENT VOIDED 300CC OF PINK URINE AT THIS TIME.
--- NOTE | 2018-10-28 09:53 | PRM.PN ---
Subjective Subjective Date: Oct 28, 2018 Time: 09:45 Subjective No acute issues. Labs reviewed. I discussed case with Dr. Mcdermott. Patient will d/c today. Patient History: Cerebrovascular disorder 32 MOTHER, , Age:51 Diabetes mellitus G8 BROTHER FH: heart disease G8 BROTHER FHx: seizures 19 CHILD Hypertension G8 BROTHER Unknown G8 SISTER VTE VTE Risk Total Score: 4 VTE Risk Score VTE Risk: Score 0-1 = Low Risk (Aggressive mobilization; early ambulation; no VTE prophylaxis required) Score 2: Moderate Risk (Intermittent/Pneumatic Compression Device OR Lovenox/Heparin/Coumadin) Score 3-4: High Risk (Intermittent/Pneumatic Compression Device AND Lovenox/Heparin/Coumadin) Score > or =5: Highest Risk (Intermittent/Pneumatic Compression Device AND Lovenox/Heparin/Coumadin) Review of Systems Neurological: Incoordination Allergies: Coded Allergies: carvedilol (Verified Allergy, Severe, WEAKNESS,DIZZINESS,GOOFY, 06/01/17) Uncoded Allergies: HCTZ (Allergy, Mild, 06/17/17) Scheduled Amlodipine Besylate/Benazepril (Amlodipine-Benazepril 10-40 Mg), 1 CAP PO DAILY, (Reported) Cinnamon Bark (Cinnamon), 1,000 MG PO HS, (Reported) Ciprofloxacin Hcl (Cipro), 500 MG PO BID Garlic (Garlic), 1,000 MG PO HS, (Reported) Insulin Aspart (Novolog), 16 UNIT SQ BID, (Reported) Insulin Glargine,Hum.rec.anlog (Basaglar Kwikpen U-100), 75 UNITS SQ HS, (Rep orted) Levothyroxine Sodium (Levothyroxine Sodium), 100 MCG PO DAILY, (Reported) Linagliptin/Metformin HCl (Jentadueto Xr 5 mg-1,000 mg Tb), 1 EACH PO DAILY24, (Reported) Multivit-Min/FA/Lycopen/Lutein (Men 50 Plus Multivitamin Tab), 1 EACH PO DAILY, (Reported) [place]-3 Fatty Acids (Fish Oil), 1,000 MG PO HS, (Reported) Ranitidine Hcl (Zantac), 1 TAB PO BID, (Reported) Solifenacin Succinate (Vesicare), 1 TAB PO DAILY, (Reported) Tamsulosin Hcl (Tamsulosin Hcl), 0.4 MG PO DAILY, (Reported) Tramadol Hcl (Tramadol Hcl), 2 TAB PO BID, (Reported) Discontinued Medications Acetaminophen With Codeine (Tylenol With Codeine #3 Tablet), 1 EACH PO DAILY24 Discontinued Reason: Discontinue Insulin Glargine,Hum.rec.anlog (Lantus), 70 UNIT SQ HS, (Reported) Discontinued Reason: No Longer Taking Linagliptin/Metformin Hcl (Jentadueto 2.5 Mg-1000 Mg Tab), 1 EACH PO BID, (Reported) Discontinued Reason: No Longer Taking Vit A,C & E/Lutein/Minerals (Ocuvite Tablet), 1 EACH PO DAILY, (Reported) Discontinued Reason: No Longer Taking Objective Vitals and I/O Vital Sign - Last 24 Hours 10/26/18 10/26/18 10/26/18 10/26/18 09:15 09:15 09:25 09:35 Temp 99.0 98.2 98.1 99.0 98.2 98.1 Pulse 89 88 92 Resp 18 18 18 B/P (MAP) 105/65 (78) 124/61 (82) 119/68 (85) Pulse Ox 94 95 93 O2 Delivery Non-Rebreather Non-Rebreather Nasal Canula O2 Flow Rate 10 10 10 3 10/26/18 10/26/18 10/26/18 10/26/18 09:45 10:05 12:08 14:36 Temp 98.0 97.9 98.0 97.9 Pulse 86 88 Resp 18 18 18 B/P (MAP) 123/57 (79) 118/65 (82) Pulse Ox 93 96 96 O2 Delivery Nasal Canula Nasal Canula Nasal Cannula O2 Flow Rate 3 3 1.00 10/26/18 10/26/18 10/26/18 10/26/18 14:38 16:17 19:43 20:10 Temp 97.6 97.6 97.6 97.6 Pulse 103 103 99 99 Resp 18 18 18 18 B/P (MAP) 130/79 (96) 145/73 (97) Pulse Ox 96 93 96 96 O2 Delivery Nasal Cannula Room Air Nasal Canula Nasal Cannula O2 Flow Rate 2.00 2.00 2.00 FiO2 28 10/26/18 10/26/18 10/27/18 10/27/18 22:52 23:22 04:07 07:19 Temp 97.5 97.5 97.5 97.5 Pulse 96 90 Resp 18 18 B/P (MAP) 132/80 (97) 133/79 (97) Pulse Ox 94 94 O2 Delivery Nasal Cannula Nasal Canula Room Air Room Air O2 Flow Rate 2.00 2.00 10/27/18 08:05 Temp 97.6 97.6 Pulse 92 Resp 18 B/P (MAP) 143/76 (98) Pulse Ox 92 O2 Delivery Room Air Intake and Output 10/26/18 10/26/18 10/27/18 15:00 23:00 07:00 Intake Total 38480 ml 3250 ml 8000 ml Output Total 2225 ml 2800 ml 1160 ml Balance 19281 ml 450 ml 6840 ml General: Alert, Oriented X3, Cooperative, No acute distress HEENT: Atraumatic, PERRLA, EOMI, Mucous membr. moist/pink Neck: Supple, No JVD Lungs: Clear to auscultation, Normal air movement Heart: Regular rate, Normal S1, Normal S2, No murmurs Abdomen: Normal bowel sounds, Soft, No tenderness Extremities: No edema, Normal pulses, No tenderness/swelling Skin: No rashes, No breakdown, No significant lesion Neuro: Normal gait, Normal speech, Strength at 5/5 X4 ext, Normal tone, Sensation intact, Cranial nerves 3-12 NL Psych/Mental Status: Mental status NL, Mood NL All Results(Lab/Rad) Laboratory Tests Test 10/27/18 04:40 White Blood Count 16.9 10^3/uL Red Blood Count 4.41 10^6/uL Hemoglobin 13.4 g/dL Hematocrit 38.9 % Mean Corpuscular Volume 88.2 fL Mean Corpuscular Hemoglobin 30.4 pg Mean Corpuscular Hemoglobin Concent 34.4 g/dL Red Cell Distribution Width 14.6 % Platelet Count 169 10^3/uL Mean Platelet Volume 9.4 fL Sodium Level 138 mmol/L Potassium Level 5.1 mmol/L Chloride Level 105.0 mmol/L Carbon Dioxide Level 24.4 mmol/L Anion Gap 13.7 Current Medications Medications (Trade) Dose Ordered Sig/Nicole Route PRN Reason Start Time Stop Time Status Last Admin Dose Admin Sodium Chloride 1,000 ml @ 100 mls/hr Q10H IV 10/26/18 07:00 10/27/18 07:53 DC 10/27/18 03:20 Levofloxacin/ Dextrose 100 ml @ ud STK-MED ONCE IV 10/26/18 06:03 10/26/18 06:05 DC Dexamethasone Sodium Phosphate (Decadron) 4 mg STK-MED ONCE .ROUTE 10/26/18 06:47 10/26/18 06:49 DC Lidocaine HCl (Lidocaine 2% Vial) 500 mg STK-MED ONCE .ROUTE 10/26/18 06:47 10/26/18 06:49 DC Ondansetron HCl (Zofran) 4 mg STK-MED ONCE .ROUTE 10/26/18 06:47 10/26/18 06:49 DC Hydromorphone HCl (Dilaudid) 2 mg STK-MED ONCE .ROUTE 10/26/18 06:47 10/26/18 06:49 DC Fentanyl Citrate (Sublimaze) 100 mcg STK-MED ONCE .ROUTE 10/26/18 06:48 10/26/18 06:50 DC Propofol (Diprivan) 200 mg STK-MED ONCE IV 10/26/18 06:48 10/26/18 06:50 DC Bupivacaine HCl/ Dextrose (Marcaine Spinal Ampul) 2 ml STK-MED ONCE IJ 10/26/18 06:48 10/26/18 06:50 DC Sodium Chloride (Sodium Chloride) 1,000 ml STK-MED ONCE IR 10/26/18 07:19 10/26/18 07:21 DC Glycine (Aminoacetic Acid) 3,000 ml STK-MED ONCE IR 10/26/18 07:20 10/26/18 07:22 DC Fentanyl Citrate (Sublimaze) 100 mcg STK-MED ONCE .ROUTE 10/26/18 08:30 10/26/18 08:32 DC Glycine (Aminoacetic Acid) 3,000 ml STK-MED ONCE IR 10/26/18 08:31 10/26/18 08:33 DC Hydromorphone HCl (Dilaudid) 0.2 mg Q5MIN PRN IV PAIN 1 - 3 10/26/18 09:30 10/27/18 01:39 DC Ondansetron HCl (Zofran) 4 mg PRN PRN IV nv 10/26/18 09:30 10/27/18 01:39 DC Promethazine HCl (Phenergan) 6.25 mg PRN PRN IV NAUSEA / VOMITING 10/26/18 09:30 10/27/18 01:39 DC Diphenhydramine HCl (Benadryl) 25 mg Q5MIN PRN IV NAUSEA / VOMITING 10/26/18 09:30 10/27/18 01:39 DC Albuterol Sulfate (Ventolin) 2.5 mg OT PRN IH WHEEZING 10/26/18 09:30 10/27/18 01:39 DC Acetaminophen/ Hydrocodone Bitart ([place] 7.5mg) 1 each Q4H PRN PO PAIN 10/26/18 09:30 11/25/18 09:29 10/27/18 03:26 Promethazine HCl (Phenergan) 12.5 mg Q4H PRN IV NAUSEA / VOMITING 10/26/18 09:30 11/25/18 09:29 Acetaminophen/ Hydrocodone Bitart ([place] 7.5mg) 1 each Q4H PRN PO PAIN 10/26/18 09:30 10/26/18 11:24 DC Promethazine HCl (Phenergan) 12.5 mg Q4H PRN IV NAUSEA / VOMITING 10/26/18 09:30 10/26/18 11:34 DC Acetaminophen/ Hydrocodone Bitart ([place] 7.5mg) 1 each Q4H PRN PO PAIN 10/26/18 09:30 10/26/18 11:24 DC Promethazine HCl (Phenergan) 12.5 mg Q4H PRN IV NAUSEA / VOMITING 10/26/18 09:30 10/26/18 11:34 DC Meperidine HCl (Demerol) 25 mg Q4 PRN IV PAIN 7 - 10 10/26/18 09:30 11/25/18 09:29 Sodium Chloride 100 ml @ ud STK-MED ONCE IV 10/26/18 09:35 10/26/18 09:37 DC Sodium Chloride 1,000 ml @ ud STK-MED ONCE .ROUTE 10/26/18 09:35 10/26/18 09:37 DC Ephedrine Sulfate (Ephedrine Sulfate) 50 mg STK-MED ONCE .ROUTE 10/26/18 09:35 10/26/18 09:37 DC Sodium Chloride 1,000 ml @ ud STK-MED ONCE .ROUTE 10/26/18 09:36 10/26/18 09:38 DC Sterile Water (Water) 1,000 ml STK-MED ONCE .ROUTE 10/26/18 09:57 10/26/18 09:59 DC Levothyroxine Sodium (Synthroid) 100 mcg ACB PO 10/27/18 09:00 11/26/18 08:59 Tamsulosin HCl (Flomax) 0.4 mg DAILY PO 10/27/18 09:00 11/26/18 08:59 Insulin Glargine (Lantus) 75 unit HS SQ 10/26/18 21:00 11/25/18 20:59 10/26/18 20:31 Oxybutynin Chloride (Ditropan) 5 mg TID PO 10/26/18 15:00 11/25/18 14:59 10/26/18 20:32 Insulin Human Lispro (Humalog) Give when food is in front... ACHS SQ 10/26/18 11:30 11/25/18 11:29 10/26/18 20:31 Dextrose (Dextrose 50%-Water Syringe) 25 ml STAT PRN IV HYPOGLYCEMIA 10/26/18 11:30 11/25/18 11:29 Famotidine (Pepcid) 20 mg BID PO 10/26/18 21:00 11/25/18 20:59 10/26/18 20:32 Sodium Chloride (NS 3000ml Irr) 3,000 ml STK-MED ONCE IR 10/26/18 22:15 10/26/18 22:17 DC Sodium Chloride (NS 3000ml Irr) 3,000 ml STK-MED ONCE IR 10/27/18 06:15 10/27/18 06:18 DC Course Sepsis Screening Results: Posi: NEGATIVE Sepsis Qualifier/Stage: NO DEFINITE RISK Vitals & review Data Vital Sign - Last 24 Hours 10/26/18 10/26/18 10/26/18 10/26/18 09:15 09:15 09:25 09:35 Temp 99.0 98.2 98.1 99.0 98.2 98.1 Pulse 89 88 92 Resp 18 18 18 B/P (MAP) 105/65 (78) 124/61 (82) 119/68 (85) Pulse Ox 94 95 93 O2 Delivery Non-Rebreather Non-Rebreather Nasal Canula O2 Flow Rate 10 10 10 3 10/26/18 10/26/18 10/26/18 10/26/18 09:45 10:05 12:08 14:36 Temp 98.0 97.9 98.0 97.9 Pulse 86 88 Resp 18 18 18 B/P (MAP) 123/57 (79) 118/65 (82) Pulse Ox 93 96 96 O2 Delivery Nasal Canula Nasal Canula Nasal Cannula O2 Flow Rate 3 3 1.00 10/26/18 10/26/18 10/26/18 10/26/18 14:38 16:17 19:43 20:10 Temp 97.6 97.6 97.6 97.6 Pulse 103 103 99 99 Resp 18 18 18 18 B/P (MAP) 130/79 (96) 145/73 (97) Pulse Ox 96 93 96 96 O2 Delivery Nasal Cannula Room Air Nasal Canula Nasal Cannula O2 Flow Rate 2.00 2.00 2.00 FiO2 28 10/26/18 10/26/18 10/27/18 10/27/18 22:52 23:22 04:07 07:19 Temp 97.5 97.5 97.5 97.5 Pulse 96 90 Resp 18 18 B/P (MAP) 132/80 (97) 133/79 (97) Pulse Ox 94 94 O2 Delivery Nasal Cannula Nasal Canula Room Air Room Air O2 Flow Rate 2.00 2.00 10/27/18 08:05 Temp 97.6 97.6 Pulse 92 Resp 18 B/P (MAP) 143/76 (98) Pulse Ox 92 O2 Delivery Room Air Intake and Output 10/26/18 10/26/18 10/27/18 15:00 23:00 07:00 Intake Total 29081 ml 3250 ml 8000 ml Output Total 2225 ml 2800 ml 1160 ml Balance 26319 ml 450 ml 6840 ml Laboratory Tests Test 10/27/18 04:40 White Blood Count 16.9 10^3/uL Red Blood Count 4.41 10^6/uL Hemoglobin 13.4 g/dL Hematocrit 38.9 % Mean Corpuscular Volume 88.2 fL Mean Corpuscular Hemoglobin 30.4 pg Mean Corpuscular Hemoglobin Concent 34.4 g/dL Red Cell Distribution Width 14.6 % Platelet Count 169 10^3/uL Mean Platelet Volume 9.4 fL Sodium Level 138 mmol/L Potassium Level 5.1 mmol/L Chloride Level 105.0 mmol/L Carbon Dioxide Level 24.4 mmol/L Anion Gap 13.7 Current Medications Medications (Trade) Dose Ordered Sig/Nicole PRN Reason Start Time Stop Time Status Last Admin Acetaminophen/ Hydrocodone Bitart ([place] 7.5mg) 1 each Q4H PRN PAIN 10/26/18 09:30 11/25/18 09:29 10/27/18 03:26 Dextrose (Dextrose 50%-Water Syringe) 25 ml STAT PRN HYPOGLYCEMIA 10/26/18 11:30 11/25/18 11:29 Famotidine (Pepcid) 20 mg BID 10/26/18 21:00 11/25/18 20:59 10/26/18 20:32 Insulin Glargine (Lantus) 75 unit HS 10/26/18 21:00 11/25/18 20:59 10/26/18 20:31 Insulin Human Lispro (Humalog) Give when food is in front... ACHS 10/26/18 11:30 11/25/18 11:29 10/26/18 20:31 Levothyroxine Sodium (Synthroid) 100 mcg ACB 10/27/18 09:00 11/26/18 08:59 Meperidine HCl (Demerol) 25 mg Q4 PRN PAIN 7 - 10 10/26/18 09:30 11/25/18 09:29 Oxybutynin Chloride (Ditropan) 5 mg TID 10/26/18 15:00 11/25/18 14:59 10/26/18 20:32 Promethazine HCl (Phenergan) 12.5 mg Q4H PRN NAUSEA / VOMITING 10/26/18 09:30 11/25/18 09:29 Tamsulosin HCl (Flomax) 0.4 mg DAILY 10/27/18 09:00 11/26/18 08:59 Sepsis Infection Criteria Pres: None LEVEL 1 SEPSIS INFECTION CRITE: ABX Therapy, Recent Invasive Procedure O2 Sat by Pulse Oximetry: 92 Oxygen Flow Rate: 2.00 Assessment/Plan Assessment/Plan Assessment/Plan 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 Patient to d/c today. 2. DM: Restart home regimen upon d/c. 3. HTN: cont UGO/Norvasc at home 4. Hypothyroidism: cont synthroid 5. PPx: Nato, YVETTE Salinas MD Oct 28, 2018 09:53
[2018-10-28 09:55] VITALS: BP 148/92
--- NOTE | 2018-10-28 09:58 | NUR ---
DISCHARGE PATIENT BEING DISCHARGED HOME AT THIS TIME IN STABLE CONDITION. PATIENT DECLINES ADDITIONAL RESOURCES AT THIS TIME. EDUCATED PATIENT ABOUT CALLING OFFICE ON TUESDAY TO SCHEDULE A FOLLOW-UP APPOINTMENT FOR TUESDAY. PATIENT VOICED UNDERSTANDING. DENIES ANY NEEDS AT THIS TIME. RELINQUISHED CARE FOR PATIENT.
== END 2018-10-28 10:50 | disposition home or self-care (01) | DRG 713 ==
LOC: MS 09:11
PROVIDERS: ADMIT Urology; ATTEND Urology
PROC: 0VB08ZZ Excision of Prostate, Via Natural or Artificial Opening Endoscopic (ICD-10-PCS; principal; 2018-10-26 07:52)
DX: N40.1 Benign prostatic hyperplasia with lower urinary tract symptoms (principal); N13.8 Other obstructive and reflux uropathy; I10 Essential (primary) hypertension; E11.9 Type 2 diabetes mellitus without complications; E03.9 Hypothyroidism, unspecified; Z60.2 Problems related to living alone; Z90.79 Acquired absence of other genital organ(s); Z88.8 Allergy status to other drugs, medicaments and biological substances; Z87.442 Personal history of urinary calculi; Z82.3 Family history of stroke; Z83.3 Family history of diabetes mellitus; Z82.49 Family history of ischemic heart disease and other diseases of the circulatory system; Z84.89 Family history of other specified conditions
CPT/HCPCS: 36415; 80048; 80051; 82948; 85025; 85027; 85610; 85730; 88305; 93005; A4217; G0378; J1100; J1170; J1815; J1956; J2001; J2405; J3010; J3490; J7030; J7050

== ENCOUNTER 2020-06-20 06:43 | Day surgery (SDC) | payer MEDICARE, MEDICAID ==
[2020-06-20] VITALS (7 sets, daily range): BP systolic 60–150; BP diastolic 70–88
[~2020-06-20 06:43] MED LIST changes: -AMINOACETIC ACID IR ONE; -AMLO1CAP15 PO; +AMLO1CAP54 PO; +AMLO5TAB4 PO; +ATOR20TA PO; -DECADRON ONE; -DILAUDID ONE; -DIPRIVAN IV ONE; +FAMO-75 PO; +FENO134C PO; -LIDOCAINE 2% VIAL ONE; +LINA5TAB PO; -MARCAINE SPINAL AMPUL IJ ONE; +NS 1000ML 1,000 ML IV SCH; +NS 1000ML 1,000 ML ONE; +OLME5TAB4 PO; +RANI-443 PO; -RANI150T23 PO; -SODIUM CHLORIDE IR ONE; -SUBLIMAZE ONE; -ZOFRAN ONE; +[UNRECOGNIZED DRUG - CODE] PO
--- NOTE | 2020-06-20 07:22 | DIREP ---
PROCEDURE:XRAY ABDOMEN SINGLE VW COMPARISON:[facility], CT, CT ABD/PELVIS W/O, 06/17/2020, 03:44 AM. INDICATIONS:PRE ESWL FINDINGS: BOWEL GAS PATTERN:Normal. CALCIFICATIONS:Bilateral nephrolithiasis is demonstrated. A left ureteral stent appears well positioned. LUNG BASES:Clear. BONES:Normal. OTHER:No additional findings. CONCLUSION: 1. Bilateral nephrolithiasis with left ureteral stent apparently well-positioned. Dictated by: Francis Aguero M.D. on 06/20/2020 at 07:20 AM
[2020-06-20] MEDS ORDERED: LIDOCAINE 2% VIAL ONE (07:28)
[2020-06-20] MEDS ORDERED: PEPCID IV ONE (07:28)
[2020-06-20] MEDS ORDERED: DIPRIVAN IV ONE (07:29)
[2020-06-20] MEDS ORDERED: VERSED ONE (07:29)
[2020-06-20] MEDS ORDERED: SUBLIMAZE ONE (07:29)
--- NOTE | 2020-06-20 07:57 | PCM.EKG ---
[facility] Test Date: 2020-06-20 Test Time: 08:53:04 Pat Name: DARRICK BHAGAT Department: Patient ID: [id number] Room: Gender: M Passenger Representative: AWYOLANDE : 1950 Requested By: RADHA ZIMMERMAN Order Number: [id number] Reading MD: Measurements Intervals [place] Rate: 78 P: 67 VT: 216 QRS: -50 QRSD: 112 T: 39 QT: 382 QTc: 435 Interpretive Statements Sinus rhythm with 1st degree AV block Left axis deviation Low voltage QRS Compared to ECG 10/24/2018 11:01:33 No significant changes Please click the below link to view image of tracing.
[2020-06-20] MEDS ORDERED: LASIX ONE (08:24)
[2020-06-20] MEDS ORDERED: CIPR500T86 PO (09:00)
[2020-06-20] MEDS ORDERED: LACTATED RINGERS 1,000 ML IV SCH (09:00)
[2020-06-20] MEDS ORDERED: LASIX IV ONE (09:30)
--- NOTE | 2020-06-20 09:35 | OPH ---
DATE OF SURGERY: 06/20/2020 PREOPERATIVE DIAGNOSIS: Left renal calculi with indwelling stent. FINAL DIAGNOSIS: Left renal calculi with indwelling stent. PROCEDURE: Left ESWL. DESCRIPTION OF PROCEDURE: The patient was brought to the lithotripsy room, was put in supine position on the lithotripsy table. A preoperative KUB and ultrasound revealed multiple large calculi in the left kidney with an indwelling stent. After the patient was given an LMA general anesthesia and after localization of the stone with the use of a C-arm fluoroscopy, the left ESWL was then performed using a Dornier Compact Delta II lithotripter. A total of 2500 shockwaves were delivered to the stones in the left kidney, especially around the left renal pelvis with the presence of the stent. There are still multiple calculi in the left kidney, which needs to be addressed in the future. After fragmentation of the stones around the ureteral stent, a total of 2500 shockwaves were delivered to the stones around the left renal pelvis. After fragmentation of the stone as noted in the fluoroscopy, procedure was terminated. The patient was then awakened and was transferred to the recovery room in stable condition. Myron Mcdermott MD DR: SALENA/josephine JOB# [id number]
== END 2020-06-20 10:15 | disposition home or self-care (01) ==
LOC: SURG 06:43
PROVIDERS: ATTEND Urology
DX: N20.0 Calculus of kidney (principal); I10 Essential (primary) hypertension; E11.9 Type 2 diabetes mellitus without complications; E66.9 Obesity, unspecified; K21.9 Gastro-esophageal reflux disease without esophagitis; Z86.73 Personal history of transient ischemic attack (TIA), and cerebral infarction without residual deficits; Z79.899 Other long term (current) drug therapy; Z79.82 Long term (current) use of aspirin; Z98.890 Other specified postprocedural states
CPT/HCPCS: 36415; 50590; 74018; 74420; 83036; 93005; J1956; J2001; J2250; J3010; J3490 ×2; J7030; C1758; C1769; J1940

== ENCOUNTER 2020-07-09 07:14 | Day surgery (SDC) | payer MEDICARE, MEDICAID ==
[2020-07-09] VITALS (10 sets, daily range): BP systolic 107–148; BP diastolic 52–90
[~2020-07-09] VITALS: Ht 182.9 cm; Wt 124.3 kg
[~2020-07-09 07:14] MED LIST changes: +DIPRIVAN IV ONE; +EPHEDRINE SULFATE ONE; +LIDOCAINE 2% VIAL ONE; +NS 100ML 100 ML IV ONE; +SUBLIMAZE ONE; +ZOFRAN ONE
[2020-07-09] MEDS ORDERED: NS 3000ML IRR IR ONE (07:33)
[2020-07-09] MEDS ORDERED: SODIUM CHLORIDE IRR BOTTLE IR ONE (07:33)
[2020-07-09 07:38] LABS: BASOPHIL % 0.5 % (0.0-0.2); EOSINOPHIL # 0.5 10^3/uL (0.0-0.2); EOSINOPHIL % 6.2 % (0.0-5.0); LYMPHOCYTES # 2.17 10^3/uL1 (1.0-4.8); MEAN CORP HGB 30.7 pg (26-34); MONOCYTES # 0.7 10^3/uL (0.3-0.8); MONOCYTES % 9.4 % (5.0-12.0); NEUTROPHIL # 4.3 10^3/uL (1.8-7.7); NEUTROPHILS % 55.6 % (41.0-85.0); RED CELL DISTRIBUTION WIDTH 12.8 % (11.5-14.5)
[2020-07-09] MEDS ORDERED: VENTOLIN HFA IH ONE (08:35)
--- NOTE | 2020-07-09 08:45 | OPH ---
DATE OF SURGERY: 07/09/2020 PREOPERATIVE DIAGNOSIS: Calculi, left kidney, status post extracorporeal shock wave lithotripsy with an indwelling stent. PROCEDURES: Cystoscopy, removal of left ureteral stent, left ureteroscopy with extraction of residual stone in the ureter. DESCRIPTION OF PROCEDURE: The patient was brought to the cystoscopy room, was put in supine position on the cystoscopy table. After the patient was given an adequate and satisfactory general anesthesia, the patient was placed in the lithotomy position. The genitalia was then prepped and draped aseptically in the usual manner. First, a 23-[place] cystoscope was inserted per urethra into the bladder. With the use of the right angle lens, the bladder was visualized. There was no tumor, no calculi, no ulcerations seen. The left ureteral stent was then removed and replaced with a Glidewire and then the cystoscope was removed and a 7-[place] semirigid ureteroscope was inserted from the bladder from the left ureteral orifice all the way to the upper ureter. There was residual stone noted in the upper ureter. Stone extraction was then performed. After this was done, there was no other stone noted in the ureter. The left ureteral guidewire was then removed. The cystoscope was then reinserted in the bladder and the bladder was emptied with fluid. After this, procedure was terminated. The patient was awakened, was transferred to the recovery room in stable condition. Myron Mcdermott MD DR: SALENA/josephine JOB# [id number]
[2020-07-09] MEDS ORDERED: LACTATED RINGERS 1,000 ML IV SCH (09:00)
--- NOTE | 2020-07-09 11:20 | DIREP ---
PROCEDURE:XRAY FLUOROSCOPY COMPARISON:[facility], [facility], XRAY ABDOMEN SINGLE VW, 06/20/2020, 06:56 AM. [facility], [facility], XRAY FLUOROSCOPY, 02/28/2017, 10:37 AM. INDICATIONS:CYSTO STENT REMOVAL, 7 IMAGES, 33.34 mGy, 66.5 sec fluoro TECHNIQUE:Intraoperative fluoroscopy FINDINGS: Intraoperative fluoroscopy for left ureteral stent removal. No laterality marker on the images but the patient has screws at the left proximal femur which are visible on the final image of the exam. No unexpected surgical instrument or retained fragment identified. A few stone fragments may remain within the left intrarenal collecting system. Fluoro time: 66.5 seconds. Images: 7 CONCLUSION: 1. Intraoperative fluoroscopy for left ureteral stent removal. Dictated by: Liz Nye MD on 07/09/2020 at 11:13 AM
[2020-07-09] MEDS ORDERED: APRESOLINE IV PRN (12:30)
[2020-07-09] MEDS ORDERED: METHOCARBAMOL IV PRN (12:30)
[2020-07-09] MEDS ORDERED: ATROPINE SULFATE IV PRN (12:30)
[2020-07-09] MEDS ORDERED: PHENERGAN IV PRN (12:30)
[2020-07-09] MEDS ORDERED: DILAUDID IV PRN ×2 (12:30)
[2020-07-09] MEDS ORDERED: SUBLIMAZE IV PRN (12:30)
[2020-07-09] MEDS ORDERED: VENTOLIN IH PRN (12:30)
[2020-07-09] MEDS ORDERED: DEMEROL IV PRN (12:30)
[2020-07-09] MEDS ORDERED: S-2 IH PRN (12:30)
[2020-07-09] MEDS ORDERED: XOPENEX IH PRN (12:30)
[2020-07-09] MEDS ORDERED: ZOFRAN IV PRN (12:30)
== END 2020-07-09 10:15 | disposition home or self-care (01) ==
LOC: SURG 07:14
PROVIDERS: ATTEND Urology
DX: N20.0 Calculus of kidney (principal); I10 Essential (primary) hypertension; E11.9 Type 2 diabetes mellitus without complications; G47.33 Obstructive sleep apnea (adult) (pediatric); K21.9 Gastro-esophageal reflux disease without esophagitis; E66.9 Obesity, unspecified; M19.90 Unspecified osteoarthritis, unspecified site; Z79.899 Other long term (current) drug therapy; Z98.890 Other specified postprocedural states; Z86.73 Personal history of transient ischemic attack (TIA), and cerebral infarction without residual deficits; Z83.3 Family history of diabetes mellitus; Z90.89 Acquired absence of other organs; Z82.0 Family history of epilepsy and other diseases of the nervous system; Z87.442 Personal history of urinary calculi; Z79.4 Long term (current) use of insulin; Z68.38 Body mass index [BMI] 38.0-38.9, adult
CPT/HCPCS: 36415; 52352; 82360; 82948 ×2; 85025; A4217 ×2; J1956; J2001; J2405; J3010; J3490 ×2; J7030; J7050; J7611; 76000; C1769

== ENCOUNTER → 2021-05-06 | Outpatient (CLI) | payer MEDICARE, MEDICAID ==
[~2021-05-06] MED LIST changes: -AMLO1CAP54 PO; -DIPRIVAN IV ONE; -EPHEDRINE SULFATE ONE; -LEVAQUIN 100 ML IV ONE; -LIDOCAINE 2% VIAL ONE; -NS 1000ML 1,000 ML IV SCH; -NS 1000ML 1,000 ML ONE; -NS 100ML 100 ML IV ONE; -SUBLIMAZE ONE; -ZOFRAN ONE; +[UNRECOGNIZED DRUG - CODE] PO
[2021-05-06 10:23] LABS: BASOPHIL % 0.3 % (0.0-0.2); EOSINOPHIL # 0.4 10^3/uL (0.0-0.2); EOSINOPHIL % 6.2 % (0.0-5.0); LYMPHOCYTES % 26.4 % (24.0-44.0); MEAN CORP HGB 29.9 pg (26-34); MONOCYTES # 0.6 10^3/uL (0.3-0.8); MONOCYTES % 9.1 % (5.0-12.0); NEUTROPHIL # 3.7 10^3/uL (1.8-7.7); NEUTROPHILS % 57.7 % (41.0-85.0); PLATELET COUNT 165 10^3/uL (150-400); RED CELL DISTRIBUTION WIDTH 13.7 % (11.5-14.5)
[2021-05-06 10:49] LABS: CALCIUM 9.9 mg/dL (8.4-10.5); CARBON DIOXIDE 28.3 mmol/L (20.0-32)
== END | disposition home or self-care (01) ==
LOC: LAB 10:07
PROVIDERS: ATTEND Nurse Practitioner Adult Health
DX: I10 Essential (primary) hypertension (principal); E11.65 Type 2 diabetes mellitus with hyperglycemia; E66.01 Morbid (severe) obesity due to excess calories; E03.9 Hypothyroidism, unspecified
CPT/HCPCS: 36415; 80053; 80061; 83036; 84436; 84439; 84443; 85025